=== PATIENT | female | born 1965 | race Native Hawaiian/Other Pacific Islander ===

== ENCOUNTER 2020-04-04 08:03 | Emergency (ER) | payer OTHER, SELFPAY ==
[2020-04-04 08:10] VITALS: BP 125/73; PULSE 80; RESP 16; TEMP 36.7; O2SAT 98
--- NOTE | 2020-04-04 08:22 | ED.GENADULT ---
HPI - General Adult General Chief complaint: Neck Pain/Injury Stated complaint: neck pain Time Seen by Provider: 04/04/20 08:22 Source: patient and RN notes reviewed Mode of arrival: ambulatory Limitations: no limitations History of Present Illness HPI narrative: 54-year-old female presents with complaints of right posterior neck pain for the past 3 months. Robaxin (as given per telehealth per her PMD), Tylenol, and Advil with little relief. No injury. No headache or numbness or weakness in the arms/upper extremities. Denies numbness or tingling. Denies pain with movement of shoulder. Pain radiates from posterior neck to right-mid back at times. No loss of mobility. No swelling. No total relieving factors. The dominant hand is the RIGHT HAND. Remains active. Postmenopausal. The patient reports they have not been diagnosed with COVID-19. The patient reports they are not waiting for the results of a COVID-19 lab test. The patient reports they do not have fever, chills, weakness, fatigue, myalgia, or facial swelling. The patient reports they do not have a new or worsening cough or shortness of breath. Denies chest pain. The patient reports they do not have any rhinorrhea, congestion, sore throat, nausea, vomiting, abdominal pain, and diarrhea. Tolerating po intake well. Denies recent traveling. Denies concerns for COVID-19 or exposures been home since [id number] order except for essential household needs, working, and return home. At this time, patient is not suspected of having COVID-19. Some parts of this dictation were generated by voice recognition software and may contain typographical and/or grammatical inaccuracies. Related Data Home Medications Medication Instructions Recorded Confirmed bupropion HCl 300 mg PO QAM 04/04/20 04/04/20 buspirone 15 mg PO BID 04/04/20 04/04/20 lamotrigine 100 mg PO DAILY 04/04/20 04/04/20 methocarbamol [Robaxin-750] 750 mg PO BID 04/04/20 04/04/20 paroxetine HCl 20 mg PO QAM 04/04/20 04/04/20 Allergies Allergy/AdvReac Type Severity Reaction Status Date / Time No Known Allergies Allergy Verified 04/04/20 08:24 Review of Systems Review of Systems: Narrative: CONSTITUTIONAL: Denies fever, chills, sweats. EYES: Denies visual changes, redness, discharge. ENT: Denies rhinorrhea, congestion, sore throat, otalgia. CARDIOVASCULAR: Denies chest pain, palpitations, edema. RESPIRATORY: Denies dyspnea, wheezing, cough. GASTROINTESTINAL: Denies abdominal pain, nausea, vomiting, diarrhea. GENITOURINARY: Denies dysuria, hematuria, abnormal discharge SKIN: Denies rash or itching. MUSCULOSKELETAL: Denies acute back pain or myalgia. Complains of right posterior neck pain. NEUROLOGIC: Denies numbness, or focal weakness. PSYCHIATRIC: Denies anxiety or depression. All other systems reviewed are negative, except as documented in HPI and below. [facility] Past Medical History Medical History (Updated 04/04/20 @ 08:43 by VERO Starkey) Anxiety Constipation Depression Surgical History Surgical History (Updated 04/04/20 @ 08:32 by VERO Starkey) History of colonoscopy Family History Family History (Updated 04/04/20 @ 08:33 by VERO Starkey) Father Cerebrovascular accident Mother Asthma Social History Social History (Updated 04/04/20 @ 08:33 by VERO Starkey) Smoking status: Never smoker Second hand tobacco smoke exposure: Yes (Former) Alcohol intake: never Substance use: never Living arrangements: with family Occupation/Education: occupation Gender identity (if verbalized by the patient): Female Comments At time of signature, agree with nurse past medical, surgical, social, and family history. There is no relevant family history pertinent to the presenting complaint. Exam Narrative: Exam Narrative: GENERAL: This is a well-nourished, well-developed patient, in no apparent distress. Talks in ful
[2020-04-04] MEDS: KETOROLAC (*BKC) 60 MG/2 ML VIAL IM (08:36)
== END 2020-04-04 08:56 | disposition home or self-care (01) ==
PROVIDERS: Emergency Provider Nurse Practitioner Family
DX: S16.1XXA Strain of muscle, fascia and tendon at neck level, initial encounter (principal); F41.9 Anxiety disorder, unspecified; F32.9 Major depressive disorder, single episode, unspecified; X58.XXXA Exposure to other specified factors, initial encounter; Z77.22 Contact with and (suspected) exposure to environmental tobacco smoke (acute) (chronic)
CPT/HCPCS: 96372; 99213; G0463; J1885